=== PATIENT | female | born 1960 | race Two or more races ===

== ENCOUNTER 2016-08-25 03:42 | Emergency (ER) | payer MEDICAID ==
[~2016-08-25] VITALS: Ht 154.9 cm; Wt 72.6 kg
[~2016-08-25 03:42] MED LIST: METH10TA97
[2016-08-25 04:56] VITALS: BP 117/75
[2016-08-25 05:31] LABS: Basophils # (auto) 0.1 uL; Basophils % (auto) 1.7 % (0.0-2.0); Eosinophils # (auto) 0.2 uL; Eosinophils % (auto) 2.6 % (0.0-7.0); Hematocrit 43.3 % (36.0-46.0); Hemoglobin 13.9 g/dL (12.2-16.2); Lymphocytes # (auto) 2.3 uL; Lymphocytes % (auto) 37.1 % (10.0-50.0); Mean Corpuscular Hemoglobin 30.7 pg (28.0-32.0); Mean Corpuscular Volume 95.9 fL (80.0-100.0); Mean Platelet Volume 8.7 fL (7.4-10.4); Monocytes # (auto) 0.5 uL; Monocytes % (auto) 8.5 % (0.0-12.0); Neutrophils # (auto) 3.1 uL; Neutrophils % (auto) 50.1 % (37.0-80.0); Platelet Count (auto) 317 10^3/uL (140-450); Red Cell Distribution Width 16.4 % (11.6-16.0); White Blood Cell 6.2 10^3/uL (4.4-10.8)
[2016-08-25 05:33] LABS: Albumin 3.1 g/dL (3.4-5.0); Calcium 8.2 mg/dL (8.5-10.1); Potassium 3.5 mmol/L (3.5-5.1)
[2016-08-25 05:36] LABS: Bilirubin, Total 0.2 mg/dL (0.2-1.0)
[2016-08-25 06:00] LABS: INR 1.06 (0.9-1.15); Prothrombin Time 10.9 sec (9.37-12.3)
[2016-08-25 06:21] LABS: B-Type Natriuretic Peptide 25.03 pg/mL (0-100)
[2016-08-25 06:22] LABS: Temperature: 22.4 C (20.0-25.0)
[2016-08-25] MEDS: cefTRIAXone SOD 1,000 MG VL IM ONE (06:40)
== END 2016-08-25 06:50 | disposition home or self-care (01) ==
LOC: ER 03:48
DX: L03.116 Cellulitis of left lower limb (principal); F17.210 Nicotine dependence, cigarettes, uncomplicated
CPT/HCPCS: 36415; 71010; 80053; 83880; 85025; 85610; 85730; 93971; 96372; 99285; J0696

== ENCOUNTER 2016-12-14 01:21 | Emergency (ER) | payer MEDICAID ==
[~2016-12-14] VITALS: Ht 154.9 cm; Wt 72.6 kg
[2016-12-14 04:00] VITALS: BP 162/70
[2016-12-14] MEDS ORDERED: IBUPROFEN 600 MG TAB PO ONE (04:30)
[2016-12-14] MEDS ORDERED: CYCLOBENZAPRINE HCL 10 MG TAB PO ONE (04:30)
== END 2016-12-14 04:54 | disposition home or self-care (01) ==
LOC: ER 01:27
DX: S46.911A Strain of unspecified muscle, fascia and tendon at shoulder and upper arm level, right arm, initial encounter (principal); F17.210 Nicotine dependence, cigarettes, uncomplicated; X58.XXXA Exposure to other specified factors, initial encounter; Y93.89 Activity, other specified; Y99.8 Other external cause status; Y92.89 Other specified places as the place of occurrence of the external cause